=== PATIENT | male | born 1960 | race Caucasian/White ===

== ENCOUNTER → 2017-04-04 | Outpatient (CLI) | payer OTHER ==
[~2017-04-04] MED LIST: CARB200T4 PO; LORA-445; LORA0.5T PO; OXYC10TA6 PO; SUMA6CAR; SUMA6PEN IM; VERAPAMIL PO; atorvastatin PO
[2017-04-04 14:33] LABS: BASOPHILS # (AUTO) 0.04 x10^3/uL (0-0.1); BASOPHILS % (AUTO) 1 % (0-1); EOSINOPHILS # (AUTO) 0.04 x10^3/uL (0-0.4); EOSINOPHILS % (AUTO) 1 % (1-7); LYMPHOCYTES # (AUTO) 1.95 x10^3/uL (1-3.4); LYMPHOCYTES % (AUTO) 27 % (22-44); MD NO; MEAN CORPUSCULAR HEMOGLOBIN 31.1 pg (27.5-34.5); MEAN CORPUSCULAR HGB CONC 33.5 g/dL (33.2-36.2); MEAN PLATELET VOLUME 7.9 fL (7.4-10.4); MONOCYTES # (AUTO) 0.66 x10^3/uL (0.2-0.8); MONOCYTES % (AUTO) 9 % (2-9); NEUTROPHILS # (AUTO) 4.63 x10^3/uL (1.8-6.8); NEUTROPHILS % (AUTO) 63 % (42-75); PLATELET COUNT 398 x10^3/uL (130-400); RED BLOOD COUNT 4.89 x10^6/uL (4.38-5.82)
[2017-04-04 14:39] LABS: MICROSCOPIC NOT IND
[2017-04-04 14:41] LABS: INTERNATIONAL NORMALIZED RATIO 0.98 (0.93-1.1); PROTHROMBIN TIME 10.2 Seconds (9.6-11.5)
[2017-04-04 14:42] LABS: ANION GAP 9 mmol/L (5-15); CALCIUM 8.6 mg/dL (8.5-10.1); CHLORIDE 109 mmol/L (98-107)
[2017-04-04 14:43] LABS: CREATININE 0.83 mg/dL (0.7-1.3)
[2017-04-04 15:42] LABS: HCT (SEDRATE) 45.5 % (39.2-51.8)
== END | disposition home or self-care (01) ==
LOC: STAR 13:05
PROVIDERS: ATTEND Orthopaedic Surgery Orthopaedic Surgery of the Spine
DX: Z01.818 Encounter for other preprocedural examination (principal)
CPT/HCPCS: 36415; 80048; 81003; 85025; 85610; 85651; 85730; 93005

== ENCOUNTER 2017-04-12 06:40 | Inpatient (IN) | payer OTHER ==
[2017-04-04 13:31] VITALS: BP 103/67
[~2017-04-12] VITALS: Ht 180.3 cm; Wt 95.0 kg
[2017-04-12] MEDS ORDERED: BACL20TA PO (10:49)
[2017-04-12] MEDS ORDERED: METO25TA35 PO (10:49)
[2017-04-12] MEDS ORDERED: LACTATED RINGERS 1,000 ML IV SCH (10:55)
[2017-04-12] MEDS ORDERED: VANCOMYCIN 1,800 MG in SODIUM CHLORIDE 0.9% 250 ML IV ONE (11:00)
[2017-04-12] MEDS ORDERED: VANCOMYCIN PER PHARMACY MC PRN (11:00)
[2017-04-12] MEDS ORDERED: LIDOCAINE 1%, 2ML SQ PRN (11:00)
[2017-04-12] MEDS ORDERED: PHARMACOKINETIC CONSULTATION MC ONE (11:00)
[2017-04-12] MEDS ORDERED: BUPIVACAINE/PF 0.5% ONE (12:20)
[2017-04-12] MEDS ORDERED: VANCOMYCIN 1,000 MG ONE (12:20)
[2017-04-12] MEDS ORDERED: EPINEPHRINE 1 MG/ML, 1ML ONE (12:20)
[2017-04-12] MEDS ORDERED: TRANEXAMIC ACID 100 MG/ML, 10ML ONE (12:20)
[2017-04-12] MEDS ORDERED: LIDOCAINE-MPF 2% ,5ML ONE (12:32)
[2017-04-12] MEDS ORDERED: PROPOFOL 10 MG/ML, 20ML ONE (12:32)
[2017-04-12] MEDS ORDERED: CEFAZOLIN 1,000 MG ONE ×2 (12:32)
[2017-04-12] MEDS ORDERED: LIDOCAINE GEL 2%, 5ML ONE (12:50)
[2017-04-12] MEDS ORDERED: GENTAMICIN 80 MG/2 ML ONE (12:52)
[2017-04-12] MEDS ORDERED: MEPERIDINE/PF 25MG/0.5ML IVPush PRN (13:00)
[2017-04-12] MEDS ORDERED: HYDROmorphone 1 MG/ML, 1ML IV PRN (13:00)
[2017-04-12] MEDS ORDERED: FENTANYL PF 100 MCG/2ML IV PRN (13:00)
[2017-04-12] MEDS ORDERED: ACETAMINOPHEN 325 MG TABLET PO PRN (13:00)
[2017-04-12] MEDS ORDERED: ONDANSETRON 2MG/ML, 2ML IVPush PRN ×2 (13:00→18:00)
[2017-04-12] MEDS ORDERED: HYDROcodone/APAP 7.5-325MG/15ML UDC PO PRN (13:00)
[2017-04-12] MEDS ORDERED: OXYcodone 5 MG/5 ML ORAL.SOL UDC PO PRN (13:00)
[2017-04-12] MEDS ORDERED: EPHEDRINE 50 MG/ML, 1ML ONE (13:03)
[2017-04-12] MEDS ORDERED: FENTANYL PF 250 MCG/5ML ONE (13:22)
[2017-04-12] MEDS ORDERED: HYDROmorphone 2 MG/ML, 1ML ONE ×3 (14:59→22:07)
[2017-04-12] MEDS ORDERED: ROPIvacaine/PF 0.5%, 20 ML ONE (15:13)
[2017-04-12] MEDS ORDERED: cloniDINE/PF 100 MCG/ML, 10 ML ONE (15:13)
[2017-04-12] MEDS ORDERED: LORazepam 2 MG/ML, 1ML ONE (15:17)
[2017-04-12] MEDS: LORazepam 2 MG/ML, 1ML IVPush PRN ×2 (15:20→15:30)
[2017-04-12] MEDS ORDERED: ACETAMINOPHEN 650 MG/20.3 ML UDC ONE (15:44)
[2017-04-12] MEDS ORDERED: OXYcodone 5 MG/5 ML ORAL.SOL UDC ONE (15:45)
[2017-04-12] MEDS ORDERED: ACETAMINOPHEN 650 MG/20.3 ML UDC PO PRN (16:00)
[2017-04-12] MEDS ORDERED: DEXAMETHASONE 4 MG/ML, 1ML IVPush ONE ×2 (16:00→16:30)
[2017-04-12] MEDS ORDERED: ACETAMINOPHEN 650 MG/20.3 ML UDC PO ONE (16:00)
[2017-04-12] MEDS ORDERED: TRANEXAMIC ACID 1,000 MG in SODIUM CHLORIDE 0.9% 100 ML IVPB ONE (17:17)
[2017-04-12] MEDS ORDERED: DIAZEPAM 5 MG TABLET PO PRN (17:30)
[2017-04-12] MEDS: OXYcodone IR 5MG TABLET PO PRN ×3 (17:59→23:59)
[2017-04-12] MEDS ORDERED: DIPHENHYDRAMINE 25 MG CAPSULE PO PRN (18:00)
[2017-04-12] MEDS ORDERED: OXYcodone IR 5MG TABLET PO PRN (18:00)
[2017-04-12] MEDS ORDERED: MAGNESIUM HYDROXIDE 8%, 30ML UDC PO PRN (18:00)
[2017-04-12] MEDS ORDERED: ALUMINUM/MAG/SIMETHICONE 30 ML UDC PO PRN (18:00)
[2017-04-12] MEDS ORDERED: BISACODYL 10 MG SUPP PR PRN (18:00)
[2017-04-12] MEDS ORDERED: LORazepam 2 MG/ML, 1ML IV PRN (18:00)
[2017-04-12] MEDS ORDERED: LORazepam 1MG TABLET PO PRN (18:00)
[2017-04-12] MEDS: HOMEMED SHEET MC SCH (18:00)
[2017-04-12] MEDS ORDERED: SODIUM CHLORIDE 0.9% 1,000ML IVBOLUS PRN (18:00)
[2017-04-12] MEDS ORDERED: PROMETHAZINE 25 MG SUPP PR PRN (18:00)
[2017-04-12] MEDS ORDERED: SCOPOLAMINE PATCH, 1.5MG PATCH.TD72 TD PRN (18:00)
[2017-04-12] MEDS ORDERED: ONDANSETRON ODT 4 MG PO PRN (18:00)
[2017-04-12] MEDS ORDERED: PROMETHAZINE 25 MG/ML, 1ML IM PRN (18:00)
[2017-04-12 19:15] VITALS: BP 115/61
[2017-04-12] MEDS ORDERED: ACETAMINOPHEN 500 MG TABLET PO PRN (19:48)
[2017-04-12] MEDS: POTASSIUM CHLORIDE 20 MEQ in D5%-0.45% NACL 1,000 ML IV SCH (20:58)
[2017-04-12] MEDS ORDERED: ZOLPIDEM 5MG TABLET PO PRN (21:00)
[2017-04-12] MEDS ORDERED: LORazepam 0.5MG TABLET PO PRN (21:00)
[2017-04-12] MEDS: CEFAZOLIN PMX 2GM/50ML 50 ML IVPB SCH (21:04)
[2017-04-12] MEDS: KETOROLAC 30 MG/1 ML IV PRN (21:25)
[2017-04-12] MEDS: HYDROmorphone 1 MG/ML, 1ML IV PRN ×2 (21:41→22:12)
[2017-04-12] MEDS: SODIUM CHLORIDE FLUSH 10ML SYR IVF SCH (22:12)
[2017-04-13 00:03] VITALS: BP 110/66
[2017-04-13] MEDS ORDERED: HYDROmorphone 2 MG/ML, 1ML ONE ×10 (00:32→22:06)
[2017-04-13] MEDS: HYDROmorphone 1 MG/ML, 1ML IV PRN ×10 (00:35→22:11)
[2017-04-13] MEDS: DIAZEPAM 10 MG TABLET PO PRN ×3 (00:36→20:40)
[2017-04-13] MEDS: KETOROLAC 30 MG/1 ML IV PRN ×3 (03:45→18:20)
[2017-04-13] MEDS: OXYcodone IR 5MG TABLET PO PRN ×7 (03:45→23:43)
[2017-04-13] MEDS: POTASSIUM CHLORIDE 20 MEQ in D5%-0.45% NACL 1,000 ML IV SCH ×2 (04:06→13:14)
[2017-04-13 04:13] VITALS: BP 96/62
[2017-04-13] MEDS: CEFAZOLIN PMX 2GM/50ML 50 ML IVPB SCH (05:06)
[2017-04-13 05:38] LABS: BASOPHILS # (AUTO) 0.02 x10^3/uL (0-0.1); BASOPHILS % (AUTO) 0 % (0-1); EOSINOPHILS # (AUTO) 0.03 x10^3/uL (0-0.4); EOSINOPHILS % (AUTO) 0 % (1-7); LYMPHOCYTES # (AUTO) 1.54 x10^3/uL (1-3.4); LYMPHOCYTES % (AUTO) 18 % (22-44); MD NO; MEAN CORPUSCULAR HEMOGLOBIN 31.7 pg (27.5-34.5); MEAN CORPUSCULAR HGB CONC 33.7 g/dL (33.2-36.2); MEAN CORPUSCULAR VOLUME 94.1 fL (81-97); MONOCYTES # (AUTO) 1.31 x10^3/uL (0.2-0.8); MONOCYTES % (AUTO) 16 % (2-9); NEUTROPHILS # (AUTO) 5.56 x10^3/uL (1.8-6.8); NEUTROPHILS % (AUTO) 66 % (42-75); PLATELET COUNT 260 x10^3/uL (130-400); RED BLOOD COUNT 3.33 x10^6/uL (4.38-5.82); RED CELL DISTRIBUTION WIDTH 13.8 % (9.4-14.8)
[2017-04-13] MEDS: ASPIRIN 325 MG TABLET EC PO SCH ×2 (06:30→16:10)
[2017-04-13] MEDS: HOMEMED SHEET MC SCH ×2 (07:43→15:52)
[2017-04-13 08:24] VITALS: BP 86/57
[2017-04-13] MEDS: BACLOFEN 10 MG TABLET PO SCH ×3 (08:34→22:11)
[2017-04-13] MEDS: DEXAMETHASONE 4 MG/ML, 1ML IV PRN ×2 (08:35→20:41)
[2017-04-13] MEDS: SODIUM CHLORIDE FLUSH 10ML SYR IVF SCH ×2 (08:38→20:38)
[2017-04-13] MEDS ORDERED: CARBAMAZEPINE 200 MG TABLET PO SCH ×2 (09:00→15:00)
[2017-04-13] MEDS ORDERED: METOPROLOL TARTRATE 25 MG TABLET PO SCH (09:00)
[2017-04-13] MEDS: DOCUSATE 100 MG CAPSULE PO PRN ×2 (10:56→20:40)
[2017-04-13] MEDS: SENNA/DOCUSATE TABLET PO PRN ×2 (10:57→20:40)
[2017-04-13 13:46] VITALS: BP 87/55
[2017-04-13] MEDS ORDERED: OXYC20TA2 PO (17:05)
[2017-04-13] MEDS ORDERED: DIAZ5TAB4 PO (17:06)
[2017-04-13] MEDS ORDERED: CEPH-368 PO (17:07)
[2017-04-13] MEDS ORDERED: HYDR4TAB48 PO (17:08)
[2017-04-13] MEDS ORDERED: ASPI-650 PO (17:08)
[2017-04-13 19:46] VITALS: BP 99/66
[2017-04-14] MEDS: HOMEMED SHEET MC SCH
[2017-04-14] MEDS: KETOROLAC 30 MG/1 ML IV PRN (00:16)
[2017-04-14] MEDS: POTASSIUM CHLORIDE 20 MEQ in D5%-0.45% NACL 1,000 ML IV SCH (00:18)
[2017-04-14 01:10] VITALS: BP 89/54
[2017-04-14 02:34] VITALS: BP 92/55
[2017-04-14] MEDS: OXYcodone IR 5MG TABLET PO PRN ×2 (02:43→05:40)
[2017-04-14] MEDS: ASPIRIN 325 MG TABLET EC PO SCH (05:40)
[2017-04-14 05:42] VITALS: BP 114/66
== END 2017-04-14 05:42 | disposition home or self-care (01) | DRG 470 ==
LOC: ORIP 09:43 → 4NOR 16:58
PROVIDERS: ADMIT Orthopaedic Surgery Orthopaedic Surgery of the Spine; ATTEND Orthopaedic Surgery Orthopaedic Surgery of the Spine
PROC: 0SRC0J9 Replacement of Right Knee Joint with Synthetic Substitute, Cemented, Open Approach (ICD-10-PCS; principal; 2017-04-12 11:30)
DX: M17.11 Unilateral primary osteoarthritis, right knee (principal); M94.261 Chondromalacia, right knee
CPT/HCPCS: 36415; 85025; C1713; J0171; J0690; J1100; J1170; J1885; J2704; J2795; J3010; J3370; J3490; C1776; J0735; J1580; J2060; J7050; J7120

== ENCOUNTER 2018-11-01 20:55 | Inpatient (IN) | payer OTHER ==
[~2018-11-01] VITALS: Ht 172.7 cm; Wt 82.3 kg
[2018-11-03 14:26] VITALS: BP 135/87
== END 2018-11-03 15:27 | disposition home or self-care (01) | DRG 917 ==
LOC: ED 23:46 → EDIP 11-02 00:10 → 4WST 11-02 00:48 → DCLOUNGE 11-03 15:18
PROVIDERS: ADMIT Family Medicine; ATTEND Family Medicine
DX: T42.4X2A Poisoning by benzodiazepines, intentional self-harm, initial encounter (principal); G92 Toxic encephalopathy; F02.81 Dementia in other diseases classified elsewhere, unspecified severity, with behavioral disturbance; D64.9 Anemia, unspecified; F19.959 Other psychoactive substance use, unspecified with psychoactive substance-induced psychotic disorder, unspecified; F31.9 Bipolar disorder, unspecified; Z88.5 Allergy status to narcotic agent; F43.21 Adjustment disorder with depressed mood; G30.0 Alzheimer's disease with early onset; G44.009 Cluster headache syndrome, unspecified, not intractable; G50.0 Trigeminal neuralgia; I11.0 Hypertensive heart disease with heart failure; Z82.49 Family history of ischemic heart disease and other diseases of the circulatory system; Z82.3 Family history of stroke; Z72.0 Tobacco use; I48.0 Paroxysmal atrial fibrillation; Z96.659 Presence of unspecified artificial knee joint; Y92.89 Other specified places as the place of occurrence of the external cause
CPT/HCPCS: 36415; 99291; J7042; 70450; 80048; 80053; 80061; 80307; 81003; 82330; 82728; 82962; 83540; 83550; 83735; 84100; 84443; 84466; 85025; 85610; 93005; G0378; J1650; J3411; J3475; J3480; 92523-GN